=== PATIENT | female | born 1980 | race African-American/Black ===

== ENCOUNTER 2017-08-14 14:04 | Emergency (ER) | payer OTHER ==
[~2017-08-14] VITALS: Ht 157.5 cm; Wt 65.5 kg
[~2017-08-14 14:04] MED LIST: BACTDS PO; CEPH-443 PO; IBUP-1542 PO
[2017-08-14 14:08] VITALS: Ht 157.5 cm; Wt 65.5 kg
== END 2017-08-14 16:00 | disposition left against medical advice (07) ==
LOC: FTE 14:04 → E/R 16:00
DX: Z53.21 Procedure and treatment not carried out due to patient leaving prior to being seen by health care provider (principal)

== ENCOUNTER 2017-10-19 14:00 | Emergency (ER) | END 2017-10-19 18:30 | disposition home or self-care (01) ==

== ENCOUNTER 2017-10-21 22:07 | Emergency (ER) | END 2017-10-22 03:21 | disposition home or self-care (01) ==

== ENCOUNTER 2018-05-02 07:17 | Emergency (ER) | END 2018-05-02 07:52 | disposition home or self-care (01) ==